=== PATIENT | male | born 1990 | race Hispanic/Latino ===

== ENCOUNTER 2017-07-29 01:33 | Emergency (ER) | payer SELFPAY ==
[2017-07-29 01:40] VITALS: RESP 18
[2017-07-29] MEDS ORDERED: Sodium Chloride 0.9% 1,000 ML IV STA (01:51)
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
[2017-07-29 02:31] LABS: BASO # 0.1 K/uL (0.0-0.2); BASO % 0.9 % (0.0-2.0); EOS # 0.1 K/uL (0.0-0.7); EOS % 1.8 % (0.0-4.0); HEMOGLOBIN 14.5 g/dL (12.0-18.0); LYMPH # 4.6 K/uL (1.0-4.3); LYMPH % 58.2 % (20.0-40.0); MEAN CELL VOLUME 87.8 fl (80.0-94.0); MEAN CORPUSCULAR HEMOGLOBIN 29.3 pg (27.0-31.0); MEAN CORPUSCULAR HGB CONC 33.4 g/dL (33.0-37.0); MONO # 0.4 K/uL (0.0-0.8); MONO % 5.6 % (0.0-10.0); NEUT # 2.7 K/uL (1.8-7.0); NEUT % 33.5 % (50.0-75.0); NRBC % 0.1 % (0.0-0.0); RBC 4.95 Mil/uL (4.40-5.90); RED CELL DISTRIBUTION WIDTH 13.5 % (11.5-14.5)
[2017-07-29 02:39] LABS: ALB/GLOB RATIO 1.5 (1.0-2.1); ALT/SGPT 43 U/L (21-72); AST/SGOT 38 U/L (17-59); BLOOD UREA NITROGEN 19 mg/dl (9-20); CALCIUM 9.1 mg/dL (8.4-10.2); GFR AFRICAN-AMERICAN > 60; GFR NON-AFRICAN AMERICAN > 60; PROTHROMBIN TIME 10.5 Seconds (9.8-13.1)
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
[2017-07-29] MEDS ORDERED: Morphine 4 MG/ML VIAL ONE ×2 (04:32→06:20)
[2017-07-29 04:46] VITALS: BP 128/63; PULSE 60; TEMP 97.9
[2017-07-29 04:50] VITALS: O2SAT 98
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
== END 2017-07-29 06:39 | disposition short-term general hospital (02) ==
LOC: H.ER 01:33
DX: S02.69XA Fracture of mandible of other specified site, initial encounter for closed fracture (principal)
CPT/HCPCS: 70450; 70480; 71045; 72125; 80053; 82948; 85025; 85610; 85730; 86850; 86900; 96374; 96375; 96376; 99285; G0480; J0295; J2270; J7040